=== PATIENT | female | born 1965 | race Two or more races ===

== ENCOUNTER 2018-01-02 12:12 | Emergency (ER) | payer BC ==
[~2018-01-02] VITALS: Ht 154.9 cm; Wt 49.0 kg
--- NOTE | 2018-01-02 13:46 | NUR ---
Patient discharged to home in stable conditon. Written and verbal after care instructions given. Patient verbalizes understanding of instructions. rx x 3, cd copy of xrays given. (pt. name) ambulatory with a steady gait
[2018-01-02 13:48] VITALS: BP 128/78
== END 2018-01-02 13:48 | disposition home or self-care (01) ==
LOC: ER 12:12
DX: S22.42XA Multiple fractures of ribs, left side, initial encounter for closed fracture (principal); Z88.5 Allergy status to narcotic agent; Z88.8 Allergy status to other drugs, medicaments and biological substances; W01.198A Fall on same level from slipping, tripping and stumbling with subsequent striking against other object, initial encounter; Y93.89 Activity, other specified; Y92.89 Other specified places as the place of occurrence of the external cause; Y99.8 Other external cause status
CPT/HCPCS: 71101; A4663